=== PATIENT | male | born 1965 | race Caucasian/White ===

== ENCOUNTER 2021-06-08 00:51 | Emergency (ER) | payer BC ==
[~2021-06-08] VITALS: Ht 185.4 cm; Wt 122.4 kg
[2021-06-08] MEDS ORDERED: morphine INJ 10 MG/ML 1ML (SYR OR VIAL) IVP STA (01:00)
[2021-06-08] MEDS ORDERED: ORPHENADRINE 60 MG/2 ML (NORFLEX) AMP (ED ONLY) IV ONE (01:15)
[2021-06-08] MEDS ORDERED: PRD20T PO (01:56)
[2021-06-08] MEDS ORDERED: CYCL10TA9 PO (01:56)
[2021-06-08] MEDS ORDERED: OXYC1TAB87 PO (01:56)
--- NOTE | 2021-06-08 01:57 | ED Back Pain ---
General Chief Complaint: Back Problems Stated Complaint: BACK SPASM Nursing Triage Note: LAST MONDAY HURT BACK AND TODAY WENT TO THE [facility], CHRISTIAN IS HAVING EXTREME PAIN IN HIS RIGHT FLANK AREA Source of Information: Patient Exam Limitations: No Limitations History of Present Illness Date Seen by Provider: Jun 08, 2021 Allergies and Home Medications Allergies Coded Allergies: No Known Drug Allergies (Unverified , 06/08/21) Past Iuuqypb-[id number]-[id number] Hx Patient Social History Tobacco Use?: No Smokeless Tobacco Frequency: Current Everyday User Use of E-Cig and/or Vaping dev: No Substance use?: No Alcohol Use?: Yes Alcohol Frequency: Once in a while Pt feels they are or have been: No Immunizations Up To Date Influenza Vaccine Up-to-Date: No; Not Current First/Initial COVID19 Vaccinat: DECEMBER 2020 Second COVID19 Vaccination [place]: [id number] 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 oz. kg; 35.00 BMI Method: Progress/Results/Core Measures Results/Orders My Orders Orders - TASHI VIZCARRA MD Morphine Injection (Morphine Injection (06/08/21 01:00) Ed Iv/Invasive Line Start (06/08/21 01:00) Orphenadrine Inj (Ed Only) (Norflex Inje (06/08/21 01:15) Ua Culture If Indicated (06/08/21 01:13) Ketorolac Injection (Toradol Injection) (06/08/21 02:00) Methylprednisolone Sod Succ (Solu-Medrol (06/08/21 02:00) Oxycodone/Apap 5/325mg Tablet (Percocet (06/08/21 02:00) Medications Given in ED Current Medications Medications Dose Ordered Sig/[place] Route Start Time Stop Time Status Last Admin Dose Admin Orphenadrine Citrate 60 mg ONCE ONCE IV 06/08/21 01:15 06/08/21 01:16 DC 06/08/21 01:12 60 MG Vital Signs/I&O 06/08/21 00:55 Temp 36.4 Pulse 76 Resp 18 B/P (MAP) 141/95 (110) Pulse Ox 98 Blood Pressure Mean: 110 Departure Impression Primary Impression: Low back pain Qualified Codes: M54.5 - Low back pain Additional Impression: Muscle spasm of back Disposition: 01 HOME, SELF-CARE Condition: Improved Departure-Patient Inst. Decision time for Depature: 01:51 Referrals: NO,LOCAL PHYSICIAN (PCP/Family) Primary Care Physician Patient Instructions: Low Back Pain in Adults, Muscle Spasms (DC) Add. Discharge Instructions: Avoid bending, lifting over 10 pounds, using machinery such as tractors or back toes, or other strenuous activity until several days after your pain has resolved. You may use diclofenac as previously prescribed for your primary pain medication. Add Percocet as prescribed for pain not controlled by diclofenac. Complete your prednisone and steroids as prescribed. Take early in the day with food or milk to avoid stomach irritation or sleep disturbance. Follow-up with your primary care provider soon as possible. Discuss further evaluation and treatment. Further evaluation might include imaging such as MRI. Further treatment may include medications, injection therapy, physical therapy, etc. Call with questions or concerns. Return to the ER if you have worsening symptoms including uncontrollable pain, difficulty controlling bowels or bladder, leg weakness, numbness in the groin, or other concerning symptoms. All discharge instructions reviewed with patient and/or family. Voiced understanding. Scripts Prednisone (Prednisone) 20 Mg Tab 40 MG PO DAILY, #8 TAB 0 Refills Prov: TASHI VIZCARRA MD 06/08/21 Cyclobenzaprine HCl (Cyclobenzaprine HCl) 10 Mg Tablet 10 MG PO TID PRN for SPASMS, #10 TAB Prov: TASHI VIZCARRA MD 06/08/21 Oxycodone HCl/Acetaminophen (Percocet 5-325 mg Tablet) 1 Each Tablet 1-2 TAB PO Q4H PRN for PAIN-BREAKTHROUGH MDD 6 TABS, #20 TAB Prov: TASHI VIZCARRA MD 06/08/21 Work/School Note: Work Release Form Date Seen in the Emergency Department: Jun 08, 2021 Return to Work: Jun 09, 2021 Other Restrictions Listed Below: No strenuous activity or lifting > 10 lbs until pain resolved several days TASHI VIZCARRA MD Jun 08, 2021 01:57
[2021-06-08] MEDS ORDERED: methylPREDNISolone 125 MG (Solu-MEDROL) VIAL IVP ONE (02:00)
[2021-06-08] MEDS ORDERED: oxyCODONE/APAP 5/325MG (PERCOCET 5) TABLET PO ONE (02:00)
[2021-06-08] MEDS ORDERED: KETOROLAC 30 MG/ML VIAL IVP ONE (02:00)
[2021-06-08 02:45] VITALS: BP 131/92
== END 2021-06-08 03:00 | disposition home or self-care (01) ==
LOC: EDUNIT# 00:51 → ER 00:54
DX: M54.5 Low back pain (principal); M62.830 Muscle spasm of back; F17.290 Nicotine dependence, other tobacco product, uncomplicated